=== PATIENT | male | born 1990 | race African-American/Black ===

== ENCOUNTER 2022-08-03 15:01 | Emergency (ER) | payer OTHER ==
[~2022-08-03] VITALS: Ht 175.3 cm; Wt 78.9 kg
[2022-08-03 15:12] VITALS: BP 123/72
--- NOTE | 2022-08-03 15:18 | NUR ---
AMBULATED TO BED 5
--- NOTE | 2022-08-03 15:19 | NUR ---
PT. AMBULATED TO ROOM WITH NO DIFFICULTY
[2022-08-03] MEDS ORDERED: DEXAMETHASONE 10 MG/ML VIAL IM ONE (15:30)
[2022-08-03] MEDS ORDERED: KETOROLAC 30 MG/ML VIAL IM ONE (15:30)
--- NOTE | 2022-08-03 15:30 | NUR ---
31YO MALE PT C/O SORE THROAT AND INCREASED SHARP BACK PAIN X3DAYS. STATES SONS AT HOME +STREP. THROAT PRESENTS W/ REDDENED SWELLING AND WHITE LESIONS. REPORTS CHRONIC BACK PAIN FROM PREVIOUS INJURY. SHARP PAIN ON MOVEMENT. DENIES NEW INJURY. DENIES N/V/D, CHEST PAIN OR SOB. PT AAOX4, HOB POSITIONED PER COMFORT HX: DENIES NKA
[2022-08-03] MEDS ORDERED: AMOX500C25 PO (15:47)
[2022-08-03] MEDS ORDERED: IBUP-2213 PO (15:47)
--- NOTE | 2022-08-03 16:01 | NUR ---
pt swabbed for strep x2. walked and handed to lab
--- NOTE | 2022-08-03 16:15 | NUR ---
Patient discharged with v/s stable. Written and verbal after care instructions FOR STREP THROAT AND LUMBAR SPRAIN given and explained. Patient alert, oriented and verbalized understanding of instructions. Ambulatory with steady gait. All questions addressed prior to discharge. ID band removed. Patient advised to follow up with PMD. Rx of AMOXICILLIN AND IBUPROFEN given. Opportunity to ask questions provided and answered.
--- NOTE | 2022-08-03 16:57 | NUR ---
C[place] horner in [facility] - 08/03/22 at 1658 by [email or web address] SEALANT MIXER
--- NOTE | 2022-08-03 16:58 | NUR ---
The patient's care was reviewed and supervised by CHELITA NAIR RN.
== END 2022-08-03 16:15 | disposition home or self-care (01) ==
LOC: MED 15:01
DX: S39.012A Strain of muscle, fascia and tendon of lower back, initial encounter (principal); J02.8 Acute pharyngitis due to other specified organisms; B96.89 Other specified bacterial agents as the cause of diseases classified elsewhere; Z72.89 Other problems related to lifestyle; Z79.899 Other long term (current) drug therapy; X58.XXXA Exposure to other specified factors, initial encounter; Y93.89 Activity, other specified; Y92.89 Other specified places as the place of occurrence of the external cause; Y99.8 Other external cause status
CPT/HCPCS: 87081; 96372; 99284; J1100; J1885